=== PATIENT | female | born 1950 | race Caucasian/White ===

== ENCOUNTER 2017-10-07 07:45 | Day surgery (SDC) | payer MEDICARE ==
[~2017-10-07] VITALS: Ht 160 cm; Wt 53.5 kg
[~2017-10-07 07:45] MED LIST: B12 FAST DIS5000 MCG PO; D31000 UNIT PO; DORZOLAMIDE2 % OU; LEVOTHYROXIN50 MCG PO; MEGARED OMEGA-31 CAP PO; WOMEN'S ONE PO; XALATAN 0.005%2.5 ML OU
[2017-10-07 10:24] VITALS: BP 128/68
== END 2017-10-07 10:32 | disposition home or self-care (01) ==
LOC: ENDO 07:45
PROVIDERS: ATTEND Surgery
PROC: 0DJD8ZZ Inspection of Lower Intestinal Tract, Via Natural or Artificial Opening Endoscopic (ICD-10-PCS; principal; 2017-10-07)
DX: Z12.11 Encounter for screening for malignant neoplasm of colon (principal)

== ENCOUNTER 2017-11-25 08:50 | Day surgery (SDC) | payer MEDICARE ==
[~2017-11-25] VITALS: Ht 160 cm; Wt 53.5 kg
[2017-11-25 11:17] VITALS: BP 108/58
== END 2017-11-25 11:48 | disposition home or self-care (01) ==
LOC: ENDO 08:50
PROVIDERS: ATTEND Surgery
PROC: 0DJD8ZZ Inspection of Lower Intestinal Tract, Via Natural or Artificial Opening Endoscopic (ICD-10-PCS; principal; 2017-11-25)
DX: Z12.11 Encounter for screening for malignant neoplasm of colon (principal); K57.30 Diverticulosis of large intestine without perforation or abscess without bleeding; Q43.8 Other specified congenital malformations of intestine; Z80.0 Family history of malignant neoplasm of digestive organs

== ENCOUNTER 2022-12-17 07:47 | Day surgery (SDC) | payer MEDICARE ==
[~2022-12-17] VITALS: Ht 160 cm; Wt 53.5 kg
[~2022-12-17 07:47] MED LIST changes: +ALENDRONATE SOD70 MG PO; +PRAVASTATIN40 MG PO
[2022-12-17 10:02] VITALS: BP 118/71
== END 2022-12-17 10:18 | disposition home or self-care (01) ==
LOC: ENDO 07:47
PROVIDERS: ATTEND Surgery
PROC: 0DJD8ZZ Inspection of Lower Intestinal Tract, Via Natural or Artificial Opening Endoscopic (ICD-10-PCS; principal; 2022-12-17)
DX: Z12.11 Encounter for screening for malignant neoplasm of colon (principal)

== ENCOUNTER 2024-04-24 08:39 | Emergency (ER) | payer MEDICARE ==
[2024-04-24] VITALS (12 sets, daily range): BP systolic 90–113; BP diastolic 61–74
[~2024-04-24] VITALS: Ht 160 cm; Wt 42.0 kg
[~2024-04-24 08:39] MED LIST changes: +DULCOLAX10 MG RE; +HYDROCO/APAP1 TA9 PO; +LORTAB 5/3255 MG PO; +REMERON15 MG PO; +REMERON30 MG PO; +XANAX0.25 MG PO; +ZOFRAN4 MG/TAB PO; +[UNRECOGNIZED DRUG - OTHER]
[2024-04-24] MEDS ORDERED: cefTRIAXone SODIUM 2 GM in SODIUM CHLORIDE 0.9% 100 ML IV ONE (08:50)
[2024-04-24] MEDS ORDERED: ONDANSETRON HCl 4 MG/2 ML SDV IV ONE (08:55)
[2024-04-24] MEDS ORDERED: SODIUM CHLORIDE 0.9% 1,000 ML IV ONE (08:55)
[2024-04-24 09:41] LABS: BASO% 0.2 % (0-3); EOS% 0.2 % (0-8); HEMATOCRIT 31.4 % (37.0-47.0); HEMOGLOBIN 9.5 g/dl (12.0-16.0); IMMATURE GRANULOCYTES 1.5 % (0.0-5.0); LYMPH% 4.2 % (15-41); MEAN CORPUSCULAR HGB 28.4 pG CALC (26.0-32.0); MEAN CORPUSCULAR HGB CONC 30.3 g/dL CAL (32.0-36.0); MONO% 7.5 % (2-13); NEUT# 13.3 thou/uL (2.00-7.15); NEUT% 86.4 % (42-76); RED BLOOD COUNT 3.34 mill/uL (4.20-5.60); RED CELL DISTRI WIDTH 17.2 % (11.5-15.5)
[2024-04-24 09:58] LABS: ALBUMIN 2.6 g/dL (3.2-5.0); ALKALINE PHOSPHATASE 230 u/l (38-126); ANION GAP 11 (6-22 (CALC)); BUN 43 mg/dL (8-23); BUN/CREATININE RATIO 29 (12-20 (CALC)); CARBON DIOXIDE 39 mmol/l (22-30); CHLORIDE 90 mmol/l (95-108); CREATININE 1.5 mg/dL (0.5-1.0); ESTIMATED GFR 36 ML/MIN (>=90 (CALC)); LIPASE 14 u/l (23-300); POTASSIUM 3.7 mmol/l (3.5-5.1); SGOT/AST 29 u/l (9-36); SODIUM 136 mmol/l (137-146); TOTAL PROTEIN 5.2 g/dL (6.3-8.2)
[2024-04-24 10:00] LABS: BILIRUBIN, TOTAL 0.5 mg/dL (0.02-1.3)
[2024-04-24] MEDS ORDERED: DOXYCYCLINE HYCLATE 100 MG in SODIUM CHLORIDE 0.9% 100 ML IV ONE (11:50)
[2024-04-24 13:45] LABS: URINE BILIRUBIN - DIPSTICK Negative (NEGATIVE); URINE BLOOD DIPSTICK Small (NEGATIVE); URINE GLUCOSE - DIPSTICK Negative (NEGATIVE); URINE KETONE Negative (NEGATIVE); URINE LEUK ESTERASE Negative (NEGATIVE); URINE NITRITE - DIPSTICK Negative (Negative); URINE PROTEIN - DIPSTICK 30 mg/dL (NEG-TRACE); URINE UROBILINOGEN - DIPSTICK 0.2 E.U./dL (0.2)
[2024-04-24 13:47] LABS: URINE COLOR Yellow
[2024-04-24 13:58] LABS: URINE WBC 0-2 WBC/hpf (0-5)
[2024-04-24 13:59] LABS: URINE HYALINE CAST FEW lpf (NONE-RARE); URINE SQUAMOUS EPITHELIAL CELL FEW EPI/hpf (0-FEW); URINE TRANSITIONAL EPI. CELLS FEW hpf
== END 2024-04-24 13:35 | disposition short-term general hospital (02) ==
LOC: ED 08:39
PROVIDERS: Family Medicine
DX: C25.9 Malignant neoplasm of pancreas, unspecified (principal); C78.6 Secondary malignant neoplasm of retroperitoneum and peritoneum; I10 Essential (primary) hypertension; K21.9 Gastro-esophageal reflux disease without esophagitis; Z20.822 Contact with and (suspected) exposure to COVID-19
CPT/HCPCS: J0696; J2405